=== PATIENT | female | born 1965 | race Caucasian/White ===

== ENCOUNTER 2020-05-16 10:38 | Emergency (ER) | payer OTHER ==
[~2020-05-16] VITALS: Ht 160 cm; Wt 77.1 kg
[2020-05-16] MEDS ORDERED: ROPINIROLE HCL2 MG PO (10:58)
[2020-05-16] MEDS ORDERED: OMEPRAZOLE40 MG PO (10:58)
== END 2020-05-16 12:02 | disposition home or self-care (01) ==
LOC: ED 10:38
DX: M25.562 Pain in left knee (principal)
CPT/HCPCS: 73560; 99283-25

== ENCOUNTER 2020-10-24 06:25 | Day surgery (SDC) | payer OTHER ==
[~2020-10-24] VITALS: Ht 160 cm; Wt 84.1 kg
[~2020-10-24 06:25] MED LIST: OMEPRAZOLE40 MG PO; ROPINIROLE HCL2 MG PO
[2020-10-24] MEDS ORDERED: HYDROCODON-ACE1 EA10 PO (08:27)
--- NOTE | 2020-10-24 08:27 | NUR ---
10/24/20 0827 Sydney Barkley 0806 PATIENT ARRIVES TO PACU UNRESPONSIVE TO PAIN, ORAL AIRWAY IN PLACE. RESP EVEN AND UNLABORED, MASK AT 6 LITERS.
[2020-10-24] MEDS ORDERED: DICLOFENAC SODI75 MG PO (08:28)
--- NOTE | 2020-10-24 09:16 | NUR ---
0855: PT RETURNS TO DAY SURGERY ROOM 5 FROM PACU VIA STRETCHER. AWAKE AND ORIENTED ON ARRIVAL. DENIES PAIN AND NAUSEA. FEDERICO PO INTAKE. VSS, RESP EVEN AND UNLABORED. DRESSING C/D/I WITH ICE IN PLACE. POC DISCUSSED AND PT AGREEABLE. NO NEEDS VOICED FOR PT AT THIS TIME
--- NOTE | 2020-10-24 10:12 | OR ---
[facility] [address] [place], [place] [address] Signed DATE OF OPERATION: 10/24/2020 SURGEON: Jaime Pepper MD PREOPERATIVE DIAGNOSIS: Medial meniscus tear, left knee. POSTOPERATIVE DIAGNOSIS: Lateral meniscus tear, left knee. PROCEDURE PERFORMED: Left knee arthroscopy with partial lateral meniscectomy. LANGUAGE INTERPRETER: None. ANESTHESIA: General. BLOOD LOSS: None. BRIEF HISTORY: Jeannie is a 55-year-old female with pain and locking in her knee. She had MRI consistent with a mid posteromedial meniscus tear. Risks and benefits of operative were discussed with her and she elected to proceed. DESCRIPTION OF PROCEDURE: Once consent was obtained, she was taken to the operating room. After adequate anesthesia, she was placed on operating room table. The right leg was flexed, abducted, and externally rotated on a well-padded leg garza. Left was placed in well-padded proximal thigh leg garza with no tourniquet. The portal sites were pre-injected using 0.25% Marcaine with epinephrine under an alcohol prep. The leg was then prepped and draped in a standard sterile fashion. Standard inferolateral and superolateral portals were made and the scope was introduced in the knee. ARTHROSCOPIC FINDINGS: The patella showed grade 1 to grade 2 chondromalacia. There was moderate synovitis throughout the knee. ACL and PCL were intact. Lateral compartment showed grade 4 chondromalacia in the posterior 1/3rd of the tibia. Grade 3 changes to the femur. Electronically Signed By: JAIME PEPPER MD 10/24/20 1012 PATIENT NAME: JEANNIE HERRERA OPERATIVE REPORT DATE OF : 65 REPORT #: [id number] PHYSICIAN: JAIME PEPPER MD PCP: RUPERTO SUN NP REPORT IS CONFIDENTIAL AND NOT TO BE RELEASED WITHOUT AUTHORIZATION [facility] [address] [place], [place] [address] Signed There was a moderate-sized degenerative tear of the posterior lateral meniscus with primarily horizontal components. Medial compartment showed grade 3 chondromalacia diffusely. The meniscus itself was actually intact. We reviewed the MRI, which did show a mid medial cleft however that we were unable to find that with probing and visualization both the undersurface and superior surface of the meniscus. The straight and curved biters were then used to trim the lateral meniscus back to a stable rim. This was then smoothed using the shaver and all debris was evacuated. The scope was then withdrawn. Portals closed with 3-0 nylon and dressed with Adaptic, ABD, and Talha wrap. She tolerated the procedure well. All sponge, needle, and instrument counts were correct. We did inject the knee with 60 mg of Toradol at the end. Jaime Pepper MD BA/JINGL /[id number] Copies: ~ Electronically Signed By: JAIME PEPPER MD 10/24/20 1012 PATIENT NAME: JEANNIE HERREAR OPERATIVE REPORT DATE OF : 65 REPORT #: [id number] PHYSICIAN: JAIME PEPPER MD PCP: RUPERTO SUN NP REPORT IS CONFIDENTIAL AND NOT TO BE RELEASED WITHOUT AUTHORIZATION
--- NOTE | 2020-10-24 10:22 | NUR ---
1000: PT AWAKE AND ALERT WATCHING TV IN STRETCHER. FINISHES REG LUNCH MEAL. FEDERICO WELL, DENIES DIZZINESS. VSS, RESP EVEN AND UNLABORED. REPORTS FEDERICO LEVEL OF PAIN AT THIS TIME. DRESSING REMAINS C/D/I. DANGLES AT THE BEDSIDE, FEDERICO WELL. DENIES DIZZINESS AND SOB. AMBULATES TO BR WITH STANDBY ASSIST FROM THIS RN. SUCESSFUL FIRST POSTOP VOID, 100ML. BACK TO ROOM 5, DRESSES AND PREPARES FOR D/C 1010: SL D/C/'D WITH CATH TIP INTACT AND PRESSURE APPLIED TO SITE. D/C INSTRUCTIONS PROVIDED AND DISCUSSED ORDERED. PT VOICES UNDERSTANDING AND DENIES QUESTIONS AND CONCERNS AT THIS TIME. WHEELED OFF OF UNIT BY THIS RN. TRANSFERS INTO VEHICLE INDEPENDENTLY. STEADY GAIT. NO PHYSICAL S/S OF DISTRESS AT THIS TIME
== END 2020-10-24 10:10 | disposition home or self-care (01) ==
LOC: DS 06:25
PROVIDERS: ATTEND Specialist
PROC: 0SBD4ZZ Excision of Left Knee Joint, Percutaneous Endoscopic Approach (ICD-10-PCS; principal; 2020-10-24 08:15)
DX: M23.352 Other meniscus derangements, posterior horn of lateral meniscus, left knee (principal); M22.42 Chondromalacia patellae, left knee; M65.9 Synovitis and tenosynovitis, unspecified; M94.28 Chondromalacia, other site
CPT/HCPCS: 01400; J0690; J1100; J1885; J2001; J2704; J3010; J7121

== ENCOUNTER 2022-10-15 19:54 | Emergency (ER) | payer OTHER ==
[~2022-10-15] VITALS: Ht 160 cm; Wt 83.9 kg
--- OUTSIDE RECORDS SUMMARY | ~2022-10-15 | XMS | Continuity of Care Document ---
Demographics + + + | Address | [address] | | | [place] [address] | + + + | Preferred Language | Unknown | + + + | Marital Status | Never | + + + | Jehovah'S Witness Affiliation | Unknown | + + + | Race | White | + + + | Ethnic Group | Unknown | + + + Author + + + | Author | [facility] | + + + | Organization | [facility] | + + + | Address | [address] | | | [place] [address] | + + + | Phone | | + + + Care Team Providers + + + + | Care Superintendent Communications Name | Role | Phone | + + + + Unavailable | Unavailable | + + + + Allergies No information. Encounters No information. Functional Status No information. Immunizations No information. Medications No information. 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 Results/Labs No information. Social History No information. Vital Signs No information."
--- OUTSIDE RECORDS SUMMARY | ~2022-10-15 | XMS | Continuity of Care Document ---
Demographics + + + | Address | [address] | | | [place] [address] | + + + | Preferred Language | Unknown | + + + | Marital Status | Never | + + + | Pentecostalism Affiliation | Unknown | + + + | Race | White | + + + | Ethnic Group | Unknown | + + + Author + + + | Author | [facility] | + + + | Organization | [facility] | + + + | Address | [address] | | | [place] [address] | + + + | Phone | | + + + Care Team Providers + + + + | Care Property Underwriter Name | Role | Phone | + [...]
[~2022-10-15 19:54] MED LIST changes: +DICLOFENAC SODI75 MG PO; +HYDROCODON-ACE1 EA10 PO
[2022-10-15 20:50] LABS: BASOPHILS 0.5 % (0-2); EOSINOPHILS 1.5 % (0-6); HEMATOCRIT 40.7 % (35.0-50.0); HEMOGLOBIN 13.7 g/dL (12.0-18.0); LYMPHOCYTES 18.2 % (24-44); MCH 28.6 (27-36); MCHC 33.7 g/dl (30-36); MCV 84.9 fl (81-99); MONOCYTES 11.2 % (0-12); NEUTROPHILS 68.6 % (39-80); PLATELET COUNT 266 K/uL (140-440); RBC 4.79 M/ul (4.3-5.7)
[2022-10-15 20:51] LABS: PH, VENOUS 7.447 (7.31-7.41)
[2022-10-15 21:12] LABS: ALBUMIN 3.5 g/dL (3.4-5.0); ANION GAP 8.9 (7-21); BILIRUBIN, TOTAL 0.7 ng/dL (0.2-1.0); BUN/CREATININE RATIO 19.48 (6.0-28.6); CALCIUM 9.2 mg/dL (8.5-10.1); CREATININE, SERUM 0.77 mg/dL (0.55-1.02); POTASSIUM 3.9 mmol/L (3.5-5.1)
[2022-10-15] MEDS ORDERED: PAXLOVID 300-11 EACH PO (22:25)
[2022-10-15] MEDS ORDERED: CYCLOBENZAPRINE10 MG PO (22:25)
[2022-10-15 22:57] VITALS: BP 115/74
[2022-10-17 01:42] LABS: PROCALCITONIN <0.07 ng/mL (0.00-0.07)
== END 2022-10-15 22:53 | disposition home or self-care (01) ==
LOC: ED 19:54
PROVIDERS: Family Medicine
DX: U07.1 COVID-19 (principal)
CPT/HCPCS: 36415; 71045; 80053; 82803; 83605; 83615; 85025; 94640; 94664; 96374; 96375; 99284-25; A9270; J1100; J1885

== ENCOUNTER 2023-02-01 19:25 | Emergency (ER) | payer OTHER ==
[~2023-02-01] VITALS: Ht 160 cm; Wt 90.0 kg
[~2023-02-01 19:25] MED LIST changes: +CYCLOBENZAPRINE10 MG PO; +PAXLOVID 300-11 EACH PO
[2023-02-01 20:02] LABS: HEMOGLOBIN 13.6 g/dL (12.0-18.0); RDW 13.3 (10.5-15.0)
[2023-02-01 20:05] LABS: BASOPHILS 0.7 % (0-2); HEMATOCRIT 41.2 % (35.0-50.0); LYMPHOCYTES 32.4 % (24-44); MCH 28.7 (27-36); MCHC 32.9 g/dl (30-36); MCV 87.2 fl (81-99); MONOCYTES 8.3 % (0-12); NEUTROPHILS 49.6 % (39-80); PLATELET COUNT 300 K/uL (140-440); RBC 4.72 M/ul (4.3-5.7)
[2023-02-01 20:27] LABS: ALBUMIN 3.4 g/dL (3.4-5.0); ALBUMIN/GLOBULIN RATIO 1.1 (1.1-2.4); ANION GAP 6.7 (7-21); BILIRUBIN, TOTAL 0.3 ng/dL (0.2-1.0); BUN/CREATININE RATIO 15.66 (6.0-28.6); CALCIUM 8.6 mg/dL (8.5-10.1); CREATININE, SERUM 0.83 mg/dL (0.55-1.02); POTASSIUM 3.7 mmol/L (3.5-5.1); PROTEIN, TOTAL 6.5 g/dL (6.4-8.2)
[2023-02-01 20:51] LABS: INFLUENZA B NAA NEGATIVE (NEGATIVE); RESPIRATORY SYNCYTIAL VIR NAA NEGATIVE (NEGATIVE)
[2023-02-01] MEDS ORDERED: PREDNISONE20 MG PO (21:11)
[2023-02-01 21:33] VITALS: BP 122/83
== END 2023-02-01 21:29 | disposition home or self-care (01) ==
LOC: ED 19:25
PROVIDERS: Internal Medicine
DX: J45.909 Unspecified asthma, uncomplicated (principal); Z79.899 Other long term (current) drug therapy; Z20.822 Contact with and (suspected) exposure to COVID-19
CPT/HCPCS: 36415; 71045; 80053; 83880; 85025; 87502; 94640; 94664; 96374; 99285-25; C9803; J2930; U0002

== ENCOUNTER 2024-04-07 06:49 | Emergency (ER) | payer OTHER ==
[~2024-04-07] VITALS: Ht 160 cm; Wt 91.2 kg
[2024-04-07] MEDS ORDERED: ACETAMINOPHEN 500 MG TAB PO ONE (07:15)
[2024-04-07] MEDS ORDERED: IBUPROFEN 600 MG TAB PO ONE (07:15)
[2024-04-07] MEDS ORDERED: predniSONE 20 MG TAB PO ONE (07:15)
[2024-04-07] MEDS ORDERED: OXYMETAZOLINE HCL 30 ML BTL NAS ONE (07:15)
[2024-04-07] MEDS ORDERED: ALBUTEROL/IPRATROPIUM 3 ML NEB INH ONE (07:15)
[2024-04-07 08:26] VITALS: BP 139/92
== END 2024-04-07 08:27 | disposition home or self-care (01) ==
LOC: ED 06:49
DX: J20.8 Acute bronchitis due to other specified organisms (principal); R51.9 Headache, unspecified; M79.10 Myalgia, unspecified site; Z79.899 Other long term (current) drug therapy
CPT/HCPCS: 94640; 94667; 99283; A9270; J7512